=== PATIENT | male | born 1995 | race Caucasian/White ===

== ENCOUNTER 2018-08-16 21:31 | Observation (INO) | payer OTHER ==
[2018-08-16] MEDS ORDERED: Sodium Chloride 0.9% 1,000 ML IV ONE (21:33)
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
[2018-08-16] MEDS ORDERED: Iopamidol 755 Mg/ML 100 ML Bottle IVPUSH ONE (21:45)
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
--- NOTE | 2018-08-16 22:10 | CR ---
Indication: Pain Technique: A single frontal view of the pelvis Comparison: None available. Findings: Bones: Overlying hard board. No acute displaced fracture seen. No dislocation. Joint spaces: Unremarkable. Soft tissues: Unremarkable. Impression: No acute fracture seen. Dictated by Jose Carlos Driscoll MD @ 08/16/2018 10:07:11 PM Dictated by: Jose Carlos Driscoll MD @ 08/16/2018 22:07:15 (Electronically Signed)
[2018-08-16 22:28] LABS: CHLORIDE,CL 106 mmol/L (98-107); SODIUM,NA 139 mmol/L (136-148)
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
[2018-08-16] MEDS ORDERED: Diphtheria,Pertussis(Acell),Tetanus Vaccine 0.5 ML Syringe IM ONE (23:22)
[2018-08-16] MEDS ORDERED: Sodium Chloride 0.9% 1,000 ML IV SCH (23:30)
--- NOTE | 2018-08-16 23:30 | CR ---
HISTORY: Left arm pain. TECHNIQUE: Two views of the left humerus. COMPARISON: No prior. FINDINGS: No acute left humeral fracture. No bony destructive change involving the left humerus. No specific identified cause of the patient`s pain. IMPRESSION: No specific identified cause of the patient`s pain. Dictated by Kareem Christianson MD @ 08/16/2018 11:29:55 PM Dictated by: Kareem Christianson MD @ 08/16/2018 23:30:01 (Electronically Signed)
[2018-08-16] MEDS ORDERED: HYDROmorphone 2 MG/ML SDV IVPUSH PRN (23:56)
[2018-08-16] MEDS ORDERED: Ondansetron 4 MG/2 ML SDV IVPUSH PRN (23:56)
[2018-08-16] MEDS ORDERED: Sodium Chloride 0.9% 10 ML SDV IV PRN (23:56)
[2018-08-16] MEDS ORDERED: Sodium Chloride 0.9% 10 ML Syringe FLUSH PRN (23:56)
[2018-08-16] MEDS ORDERED: Sodium Chloride 0.9% 2.5 ML Syringe FLUSH PRN (23:56)
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
[2018-08-17] MEDS ORDERED: LORazepam 1 MG Tab PO SCH (00:30)
[2018-08-17] MEDS: Acetaminophen/HYDROcodone 325-5 MG Tab PO PRN ×3 (01:49→12:50)
[2018-08-17] MEDS: Lactated Ringers 1,000 ML IV SCH ×4 (02:04→22:46)
[2018-08-17 06:40] LABS: CHLORIDE,CL 105 mmol/L (98-107); SODIUM,NA 138 mmol/L (136-148)
[2018-08-17] MEDS: Multivitamin Tab PO SCH (08:11)
[2018-08-17] MEDS: HYDROmorphone 1 MG/ML Syringe IVPUSH PRN ×3 (09:25→18:06)
--- NOTE | 2018-08-17 10:15 | PCM.SURGPN ---
- General Info Date of Service: 08/17/18 Date of Surgery/Procedure: 08/17/18 POD#: 0 Functional Status: Reports: Other (Patient complaining of left arm and hand pain. Painful to lift left arm. ) - Review of Systems General: Reports: No Symptoms HEENT: Reports: Other (sore along left side of neck ) Pulmonary: Reports: No Symptoms Cardiovascular: Reports: Chest Pain (along upper sternum ) Gastrointestinal: Reports: No Symptoms Genitourinary: Reports: No Symptoms Musculoskeletal: Reports: Shoulder Pain, Arm Pain Skin: Reports: No Symptoms Neurological: Reports: No Symptoms Psychiatric: Reports: No Symptoms - Patient Data Vitals - Most Recent: Last Vital Signs Temp 36.7 C 08/17/18 07:00 Pulse 83 08/17/18 07:00 Resp 16 08/17/18 07:00 BP 125/72 08/17/18 07:00 Pulse Ox 97 08/17/18 07:00 Weight - Most Recent: 102.7 kg I&O - Last 24 Hours: Intake & Output 08/16/18 08/17/18 08/17/18 22:59 06:59 14:59 Intake Total 1821 Output Total 0 Balance 1821 Lab Results Last 24 Hrs: Laboratory Results - last 24 hr 08/16/18 08/16/18 08/16/18 Range/Units 21:49 21:49 21:49 WBC 23.79 H (4.0-11.0) K/uL RBC 5.28 (4.50-5.90) M/uL Hgb 17.0 (13.0-17.0) g/dL Hct 50.5 H (38.0-50.0) % MCV 95.6 (80.0-98.0) fL MCH 32.2 H (27.0-32.0) pg MCHC 33.7 (31.0-37.0) g/dL RDW Std Deviation 44.5 (28.0-62.0) fl RDW Coeff of No 13 (11.0-15.0) % Plt Count 326 (150-400) K/uL MPV 11.00 (7.40-12.00) fL Add Manual Diff YES Neutrophils % (Manual) 76 (48.0-80.0) % Band Neutrophils % 2 % Lymphocytes % (Manual) 17 (16.0-40.0) % Monocytes % (Manual) 5 (0.0-15.0) % Nucleated RBC % 0.0 /100WBC Absolute Seg Neuts 18.1 H (1.4-5.7) Band Neutrophils # 0.5 Lymphocytes # (Manual) 4.0 H (0.6-2.4) Monocytes # (Manual) 1.2 H (0.0-0.8) Nucleated RBCs # 0 K/uL Sodium 139 (136-148) mmol/L Potassium 3.9 (3.5-5.1) mmol/L Chloride 106 (98-107) mmol/L Carbon Dioxide 21.3 (21.0-32.0) mmol/L BUN 12 (7.0-18.0) mg/dL Creatinine 0.8 (0.8-1.3) mg/dL Est Cr Clr Drug Dosing 148.28 mL/min Estimated GFR (MDRD) > 60.0 ml/min Glucose 115 H (74-106) mg/dL Calcium 8.6 (8.5-10.1) mg/dL Total Bilirubin 0.3 (0.2-1.0) mg/dL AST 57 H (15-37) IU/L ALT 44 (14-63) IU/L Alkaline Phosphatase 92 (46-116) U/L Creatine Kinase 444 H (26-308) U/L Troponin I < 0.050 (0.000-0.056) ng/mL Total Protein 7.7 (6.4-8.2) g/dL Albumin 4.1 (3.4-5.0) g/dL Globulin 3.6 (2.6-4.0) g/dL Albumin/Globulin Ratio 1.1 (0.9-1.6) Lipase 169 (73-393) U/L Urine Color Urine Appearance Urine pH (5.0-8.0) Ur Specific [place] (1.001-1.035) Urine Protein (NEGATIVE) mg/dL Urine Glucose (UA) (NEGATIVE) mg/dL Urine Ketones (NEGATIVE) mg/dL Urine Occult Blood (NEGATIVE) Urine Nitrite (NEGATIVE) Urine Bilirubin (NEGATIVE) Urine Urobilinogen (<2.0) EU/dL Ur Leukocyte Esterase (NEGATIVE) Urine RBC (0-2/HPF) Urine WBC (0-5/HPF) Ur Epithelial Cells (NONE-FEW) Urine Bacteria (NEGATIVE) Urine Mucus (NONE-MOD) Urine Opiates Screen (NEGATIVE) Ur Oxycodone Screen (NEGATIVE) Urine Methadone Screen (NEGATIVE) Ur Barbiturates Screen (NEGATIVE) Ur Phencyclidine Scrn (NEGATIVE) Ur Amphetamine Screen (NEGATIVE) U Methamphetamines Scrn (NEGATIVE) U Benzodiazepines Scrn (NEGATIVE) U Cocaine Metab Screen (NEGATIVE) U Marijuana (THC) Screen (NEGATIVE) Ethyl Alcohol 308 mg/dL Blood Type O POSITIVE Antibody Screen NEGATIVE 08/17/18 08/17/18 08/17/18 Range/Units 00:00 00:00 05:29 WBC (4.0-11.0) K/uL RBC (4.50-5.90) M/uL Hgb (13.0-17.0) g/dL Hct (38.0-50.0) % MCV (80.0-98.0) fL MCH (27.0-32.0) pg MCHC (31.0-37.0) g/dL RDW Std Deviation (28.0-62.0) fl RDW Coeff of No (11.0-15.0) % Plt Count (150-400) K/uL MPV (7.40-12.00) fL Add Manual Diff Neutrophils % (Manual) (48.0-80.0) % Band Neutrophils % % Lymphocytes % (Manual) (16.0-40.0) % Monocytes % (Manual) (0.0-15.0) % Nucleated RBC % /100WBC Absolute Seg Neuts (1.4-5.7) Band Neutrophils # Lymphocytes # (Manual) (0.6-2.4) Monocytes # (Manual) (0.0-0.8) Nucleated RBCs # K/uL Sodium (136-148) mmol/L Potassium (3.5-5.1) mmol/L Chloride (98-107) mmol/L Carbon Dioxide (21.0-32.0) mmol/L BUN (7.0-18.0) mg/dL Creatinine (0.8-1.3) mg/dL Est Cr Clr Drug Dosing mL/min Estimated GFR (MDRD) ml/min Glucose (74-106) mg/dL Calcium (8.5-10.1) mg/dL Total Bilirubin (0.2-1.0) mg/dL AST (15-37) IU/L ALT (14-63) IU/L Alkaline Phosphatase (46-116) U/L Creatine Kinase 1658 H (26-308) U/L Troponin I (0.000-0.056) ng/mL Total Protein (6.4-8.2) g/dL Albumin (3.4-5.0) g/dL Globulin (2.6-4.0) g/dL Albumin/Globulin Ratio (0.9-1.6) Lipase (73-393) U/L Urine Color YELLOW Urine Appearance CLEAR Urine pH 5.5 (5.0-8.0) Ur Specific [place] 1.010 (1.001-1.035) Urine Protein NEGATIVE (NEGATIVE) mg/dL Urine Glucose (UA) NEGATIVE (NEGATIVE) mg/dL Urine Ketones NEGATIVE (NEGATIVE) mg/dL Urine Occult Blood SMALL H (NEGATIVE) Urine Nitrite NEGATIVE (NEGATIVE) Urine Bilirubin NEGATIVE (NEGATIVE) Urine Urobilinogen 0.2 (<2.0) EU/dL Ur Leukocyte Esterase NEGATIVE (NEGATIVE) Urine RBC 0-1 (0-2/HPF) Urine WBC 0-1 (0-5/HPF) Ur Epithelial Cells RARE (NONE-FEW) Urine Bacteria RARE (NEGATIVE) Urine Mucus LIGHT (NONE-MOD) Urine Opiates Screen NEGATIVE (NEGATIVE) Ur Oxycodone Screen NEGATIVE (NEGATIVE) Urine Methadone Screen NEGATIVE (NEGATIVE) Ur Barbiturates Screen NEGATIVE (NEGATIVE) Ur Phencyclidine Scrn NEGATIVE (NEGATIVE) Ur Amphetamine Screen NEGATIVE (NEGATIVE) U Methamphetamines Scrn NEGATIVE (NEGATIVE) U Benzodiazepines Scrn NEGATIVE (NEGATIVE) U Cocaine Metab Screen NEGATIVE (NEGATIVE) U Marijuana (THC) Screen NEGATIVE (NEGATIVE) Ethyl Alcohol mg/dL Blood Type Antibody Screen 08/17/18 08/17/18 Range/Units 05:39 05:39 WBC 14.34 H (4.0-11.0) K/uL RBC 4.50 (4.50-5.90) M/uL Hgb 14.2 (13.0-17.0) g/dL Hct 43.1 (38.0-50.0) % MCV 95.8 (80.0-98.0) fL MCH 31.6 (27.0-32.0) pg MCHC 32.9 (31.0-37.0) g/dL RDW Std Deviation 44.8 (28.0-62.0) fl RDW Coeff of No 13 (11.0-15.0) % Plt Count 279 (150-400) K/uL MPV 11.30 (7.40-12.00) fL Add Manual Diff Neutrophils % (Manual) (48.0-80.0) % Band Neutrophils % % Lymphocytes % (Manual) (16.0-40.0) % Monocytes % (Manual) (0.0-15.0) % Nucleated RBC % 0.0 /100WBC Absolute Seg Neuts (1.4-5.7) Band Neutrophils # Lymphocytes # (Manual) (0.6-2.4) Monocytes # (Manual) (0.0-0.8) Nucleated RBCs # 0 K/uL Sodium 138 (136-148) mmol/L Potassium 4.6 (3.5-5.1) mmol/L Chloride 105 (98-107) mmol/L Carbon Dioxide 21.3 (21.0-32.0) mmol/L BUN 10 (7.0-18.0) mg/dL Creatinine 0.8 (0.8-1.3) mg/dL Est Cr Clr Drug Dosing 148.28 mL/min Estimated GFR (MDRD) > 60.0 ml/min Glucose 106 (74-106) mg/dL Calcium 8.0 L (8.5-10.1) mg/dL Total Bilirubin 0.4 (0.2-1.0) mg/dL AST 63 H (15-37) IU/L ALT 42 (14-63) IU/L Alkaline Phosphatase 53 (46-116) U/L Creatine Kinase (26-308) U/L Troponin I (0.000-0.056) ng/mL Total Protein 6.2 L (6.4-8.2) g/dL Albumin 3.4 (3.4-5.0) g/dL Globulin 2.8 (2.6-4.0) g/dL Albumin/Globulin Ratio 1.2 (0.9-1.6) Lipase (73-393) U/L Urine Color Urine Appearance Urine pH (5.0-8.0) Ur Specific [place] (1.001-1.035) Urine Protein (NEGATIVE) mg/dL Urine Glucose (UA) (NEGATIVE) mg/dL Urine Ketones (NEGATIVE) mg/dL Urine Occult Blood (NEGATIVE) Urine Nitrite (NEGATIVE) Urine Bilirubin (NEGATIVE) Urine Urobilinogen (<2.0) EU/dL Ur Leukocyte Esterase (NEGATIVE) Urine RBC (0-2/HPF) Urine WBC (0-5/HPF) Ur Epithelial Cells (NONE-FEW) Urine Bacteria (NEGATIVE) Urine Mucus (NONE-MOD) Urine Opiates Screen (NEGATIVE) Ur Oxycodone Screen (NEGATIVE) Urine Methadone Screen (NEGATIVE) Ur Barbiturates Screen (NEGATIVE) Ur Phencyclidine Scrn (NEGATIVE) Ur Amphetamine Screen (NEGATIVE) U Methamphetamines Scrn (NEGATIVE) U Benzodiazepines Scrn (NEGATIVE) U Cocaine Metab Screen (NEGATIVE) U Marijuana (THC) Screen (NEGATIVE) Ethyl Alcohol mg/dL Blood Type Antibody Screen Med Orders - Current: Current Medications Hydrocodone Bitart/Acetaminophen ([place] 325-5 Mg) 2 tab PO Q4H PRN PRN Reason: Pain (moderate 4-6) Last Admin: 08/17/18 08:10 Dose: 2 tab Hydromorphone HCl (Dilaudid) 0.5 mg IVPUSH Q1H PRN PRN Reason: Pain (severe 7-10) Last Admin: 08/17/18 09:25 Dose: 0.5 mg Lactated Ringer's (Ringers, Lactated) 1,000 mls @ 150 mls/hr IV ASDIRECTED [facility] Last Admin: 08/17/18 08:46 Dose: 150 mls/hr Lorazepam (Ativan) 0 mg PO ASDIRECTED [facility]; Protocol Multivitamins/Minerals/Vitamin C (Tab-A-Janay) 1 tab PO DAILY [facility] DANIEL Last Admin: 08/17/18 08:11 Dose: 1 tab Ondansetron HCl (Zofran) 4 mg IVPUSH Q6H PRN PRN Reason: Nausea/Vomiting Sodium Chloride (Saline Flush) 10 ml FLUSH ASDIRECTED PRN PRN Reason: Keep Vein Open Sodium Chloride (Saline Flush) 2.5 ml FLUSH ASDIRECTED PRN PRN Reason: Keep Vein Open Sodium Chloride (Normal Saline) 10 ml IV ASDIRECTED PRN PRN Reason: IV Use Discontinued Medications Diphtheria/Tetanus/Acell Pertussis (Adacel) 0.5 ml IM .ONCE ONE Stop: 08/16/18 23:23 Last Admin: 08/17/18 00:20 Dose: 0.5 ml Hydromorphone HCl (Dilaudid) 0.5 mg IVPUSH Q1H PRN PRN Reason: Pain (severe 7-10) Sodium Chloride (Normal Saline) 1,000 mls @ 999 mls/hr IV STAT ONE Stop: 08/16/18 22:33 Last Admin: 08/16/18 21:38 Dose: 999 mls/hr Sodium Chloride (Normal Saline) 1,000 mls @ 150 mls/hr IV STAT [facility] DANIEL Last Admin: 08/17/18 00:20 Dose: 150 mls/hr Iopamidol (Isovue-370 (76%)) 100 ml IVPUSH ONETIME ONE Stop: 08/16/18 21:46 Last Admin: 08/16/18 22:04 Dose: 100 ml - Exam General: Alert, Oriented, Cooperative HEENT: Pupils Equal, Pupils Reactive, EOMI, Mucous Membr. Moist/Duson, Other ( left ear sutured) Neck: Supple, Trachea Midline, Other (bruising along left lateral aspect of neck ) Lungs: Clear to Auscultation, Normal Respiratory Effort Cardiovascular: Regular Rate, Regular Rhythm GI/Abdominal Exam: Soft, Non-Tender, No Distention, No Mass Extremities: Other (Bruising and swelling over the index finger metatarsal. Tender to palpation around anterior left shoulder ) Skin: Warm, Dry, Intact Neurological: No New Focal Deficit, Normal Gait, Normal Speech, Normal Tone, Strength Equal Bilateral Psy/Mental Status: Alert, Normal Affect, Normal Mood - Problem List & Annotations (1) Pulmonary contusion SNOMED Code(s): 920870094 Code(s): S27.329A - CONTUSION OF LUNG, UNSPECIFIED, INITIAL ENCOUNTER Status: Acute Current Visit: No (2) Fracture of manubrium SNOMED Code(s): 97840632, 49372720 Code(s): S22.21XA - FRACTURE OF MANUBRIUM, INITIAL ENCOUNTER FOR CLOSED FRACTURE Status: Acute Current Visit: No (3) Alcohol intoxication SNOMED Code(s): 43257445 Code(s): F10.929 - ALCOHOL USE, UNSPECIFIED WITH INTOXICATION, UNSPECIFIED Status: Acute Current Visit: No (4) Rhabdomyolysis SNOMED Code(s): 402283692 Code(s): M62.82 - RHABDOMYOLYSIS Status: Acute Current Visit: No - Problem List Review Problem List Initiated/Reviewed/Updated: Yes - My Orders Last 24 Hours: Active Orders 24 hr Category Date Time Status Patient Status [ADT] Routine ADT 08/16/18 23:56 Active CIWAA Assessment [RC] Q4H Care 08/17/18 00:28 Active May Shower [RC] ASDIRECTED Care 08/16/18 23:56 Active Notify Provider Vital Signs [RC] PRN Care 08/16/18 23:57 Active Notify Provider [RC] PRN Care 08/17/18 00:28 Active Oxygen Therapy [RC] PRN Care 08/16/18 23:56 Active RT Incentive Spirometry [RC] Q1HWA Care 08/16/18 23:56 Active Up With Assistance [RC] ASDIRECTED Care 08/16/18 23:56 Active Vaccines to be Administered [RC] PER UNIT ROUTINE Care 08/16/18 23:22 Active Vital Signs [RC] Q4H Care 08/16/18 23:56 Active Regular Diet [DIET] Diet 08/17/18 Lunch Active Hand 2V Lt [CR] Routine Exams 08/17/18 09:41 Ordered Shoulder Comp Lt [CR] Routine Exams 08/17/18 09:41 Ordered CREATINE KINASE,CK [CHEM] Routine Lab 08/17/18 12:00 Ordered Acetaminophen/HYDROcodone [[place] 325-5 MG] Med 08/16/18 23:56 Active 2 tab PO Q4H PRN HYDROmorphone [Dilaudid] Med 08/17/18 07:30 Active 0.5 mg IVPUSH Q1H PRN LORazepam [Ativan] Med 08/17/18 00:30 Active See Protocol PO ASDIRECTED Lactated Ringers [Ringers, Lactated] 1,000 ml Med 08/16/18 23:45 Active IV ASDIRECTED Multivitamins [Tab-A-Janay] Med 08/17/18 09:00 Active 1 tab PO DAILY Ondansetron [Zofran] Med 08/16/18 23:56 Active 4 mg IVPUSH Q6H PRN Sodium Chloride 0.9% [Normal Saline] Med 08/16/18 23:56 Active 10 ml IV ASDIRECTED PRN Sodium Chloride 0.9% [Saline Flush] Med 08/16/18 23:56 Active 10 ml FLUSH ASDIRECTED PRN Sodium Chloride 0.9% [Saline Flush] Med 08/16/18 23:56 Active 2.5 ml FLUSH ASDIRECTED PRN Peripheral IV Insertion Adult [OM.PC] Urgent Oth 08/16/18 23:56 Ordered Resuscitation Status Routine Resus Stat 08/16/18 23:56 Ordered Medication Orders Hydrocodone Bitart/Acetaminophen ([place] 325-5 Mg) 2 tab PO Q4H PRN PRN Reason: Pain (moderate 4-6) Last Admin: 08/17/18 08:10 Dose: 2 tab Admin: 08/17/18 01:49 Dose: 2 tab Hydromorphone HCl (Dilaudid) 0.5 mg IVPUSH Q1H PRN PRN Reason: Pain (severe 7-10) Last Admin: 08/17/18 09:25 Dose: 0.5 mg Lactated Ringer's (Ringers, Lactated) 1,000 mls @ 150 mls/hr IV ASDIRECTED [facility] Last Admin: 08/17/18 08:46 Dose: 150 mls/hr Infusion: 08/17/18 08:45 Dose: 150 mls/hr Admin: 08/17/18 02:04 Dose: 150 mls/hr Lorazepam (Ativan) 0 mg PO ASDIRECTED [facility]; Protocol Multivitamins/Minerals/Vitamin C (Tab-A-Janay) 1 tab PO DAILY [facility] DANIEL Last Admin: 08/17/18 08:11 Dose: 1 tab Ondansetron HCl (Zofran) 4 mg IVPUSH Q6H PRN PRN Reason: Nausea/Vomiting Sodium Chloride (Saline Flush) 10 ml FLUSH ASDIRECTED PRN PRN Reason: Keep Vein Open Sodium Chloride (Saline Flush) 2.5 ml FLUSH ASDIRECTED PRN PRN Reason: Keep Vein Open Sodium Chloride (Normal Saline) 10 ml IV ASDIRECTED PRN PRN Reason: IV Use - Plan Plan (Free Text/Narrative):: Will get left shoulder and left hand xrays. CK is still elevated. Will check every six hours until it starts coming down. Patient can have a regular diet. Will keep IVF until the CK comes down. Ok to shower
[2018-08-17] MEDS: Acetaminophen/oxyCODONE 325-5 MG Tab PO PRN (19:25)
[2018-08-18] MEDS: Acetaminophen/oxyCODONE 325-5 MG Tab PO PRN (03:31)
[2018-08-18] MEDS: Lactated Ringers 1,000 ML IV SCH (05:25)
[2018-08-18 06:24] LABS: CHLORIDE,CL 103 mmol/L (98-107); SODIUM,NA 137 mmol/L (136-148)
[2018-08-18] MEDS ORDERED: Ketorolac 10 MG Tab PO SCH (07:15)
[2018-08-18] MEDS: Multivitamin Tab PO SCH (08:03)
--- NOTE | 2018-08-18 08:51 | CR ---
EXAMINATION: Left hand HISTORY: Swelling COMPARISON: None TECHNIQUE: 2 views FINDINGS/IMPRESSION: There is no acute osseous abnormality, dislocation, or fracture. Bone mineralization and joint spaces are preserved.
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
--- NOTE | 2018-08-18 10:42 | CR ---
EXAMINATION: Left shoulder HISTORY: Pain COMPARISON: 08/16/2018 TECHNIQUE: 2 views FINDINGS/IMPRESSION: There is no acute osseous abnormality, dislocation, or fracture. Bone mineralization and joint spaces are preserved.
== END 2018-08-18 10:15 | disposition home or self-care (01) ==
LOC: MW.ED 21:31 → MW.MS 23:56
PROVIDERS: ADMIT Surgery; ATTEND Surgery
DX: S27.329A Contusion of lung, unspecified, initial encounter (principal); S22.21XA Fracture of manubrium, initial encounter for closed fracture; F10.929 Alcohol use, unspecified with intoxication, unspecified; M62.82 Rhabdomyolysis; V49.9XXA Car occupant (driver) (passenger) injured in unspecified traffic accident, initial encounter
CPT/HCPCS: 36415; 70450; 71045; 71260; 72125; 72170; 73030; 73060; 73120; 74177; 80048; 80053; 80305; 81001; 82550; 83690; 84484; 85025; 85027; 86850; 86900; 86901; 90471; 90715; 93005; 96361; 96374; 96376; 99285; A9270; G0378; G0480; J1170; J7040; J7120; Q9967; 96360